=== PATIENT | female | born 1955 | race Caucasian/White ===

== ENCOUNTER 2018-10-21 04:50 | Day surgery (SDC) | payer OTHER ==
[2018-10-20 11:12] VITALS: BMI 42.9
[2018-10-21] MEDS ORDERED: BUPIVACAINE HCL/PF 0.5% (5MG/ML) 10 ML VIAL ONE (09:51)
--- NOTE | 2018-10-21 10:06 | HP ---
History & Physical Update - History History: No Change - Physical Physical: No Change - Assessment Assessment: No Change - Plan Plan: No Change (H & P + progress notes done on 08/22/18 and 09/22/18.)
--- NOTE | 2018-10-21 10:13 | OP ---
Operative Note - Note: Operative Date: 10/21/18 Pre-Operative Diagnosis: VENTRAL HERNIA WITH OBSTRUCTION Operation: Robotic SOLO, ventral and recurrent incisional hernia repair with mesh Findings: 4 cm umbilical hernia with incarcerated omentum 4 x 3 and 3 x 2 cm recurrent incisional hernia defects at medial end of right subcostal scar Post-Operative Diagnosis: Other (recurrent incisional hernias (2) at right subcostal scar) Surgeon: Remberto Pinzon Regulator Tester: Antoinette Hernandes Anesthesia: General Estimated Blood Loss (mls): 20 Operative Report Dictated: Yes
[2018-10-21] MEDS ORDERED: ceFAZolin SODIUM 1 GM VIAL IVPB ONE (10:34)
[2018-10-21] MEDS ORDERED: BUPIVACAINE HCL/PF (5 MG/ML) 30 ML VIAL IJ ONE ×2 (10:53)
[2018-10-21] MEDS ORDERED: PROMETHAZINE HCL 25 MG/1 ML VIAL IVPUSH PRN (14:18)
[2018-10-21] MEDS ORDERED: oxyCODONE HCL 5 MG TABLET PO PRN (14:18)
[2018-10-21] MEDS ORDERED: ONDANSETRON 4 MG/2 ML VIAL IVPUSH PRN (14:18)
--- NOTE | 2018-10-21 14:45 | SURG ---
Surgery Family Support Worker Note Family Support Worker: Antoinette Hernandes PA-C (Suzy) Date of Service: 10/21/18 Diagnosis: VENTRAL HERNIA WITH OBSTRUCTION Procedure: Robotic SOLO, ventral and recurrent incisional hernia repair with mesh I was present for the entirety of the operative procedure. For further detail, please refer to operative report. Visit type - Case Type Case Type: Scheduled - Emergency Emergency Visit: No - New patient This patient is new to me today: Yes Date on this admission: 10/21/18 - Critical Care Critical Care patient: No
[2018-10-21 16:40] VITALS: PULSE 89
[2018-10-21 18:03] VITALS: BP 133/75; TEMP 97.7
--- NOTE | 2018-10-22 07:55 | OP ---
DATE OF OPERATION: 10/21/2018 LOCATION NUMBER: Third surgery. PROCEDURE: Robotic-assisted laparoscopic lysis of adhesions, ventral and incisional hernia repair with mesh. PREOPERATIVE DIAGNOSIS: Ventral hernia with obstruction. POSTOPERATIVE DIAGNOSES: Intraabdominal adhesions, ventral (umbilical) hernia, and recurrent incisional hernia. SURGEON: Remberto Pnizon MD WE[place]ERCASTER: ETELVINA Braswell ANESTHESIA: General endotracheal. FINDINGS AND PROCEDURE: This is a 62-year-old female with history of open cholecystectomy in the past, who had developed an incisional hernia and had open repair with mesh. Patient subsequently developed an umbilical bulge which was about 5 cm in size and which was nonreducible. The patient was advised elective, robotic-assisted ventral hernia repair after a month of weight loss. So, consent was obtained after discussing the risks, benefits, and alternatives to the procedure. Patient was brought to the operating room and placed in supine position. General endotracheal anesthesia was administered. A roll was placed under the patient' s left flank, and both arms were tucked to the side on a beaulieu bag. The abdomen was prepped and draped in the usual sterile fashion. Using 0.5% Marcaine, local anesthesia was administered to the proposed incision sites. The peritoneal cavity was entered using the Veress needle technique, and pneumoperitoneum was established. This was followed by insertion of a left subcostal, 8-mm port into the peritoneal cavity. The 3D laparoscope was inserted, and the peritoneal cavity was carefully inspected and was noted to be free of inadvertent injury. The umbilical hernia containing incarcerated omentum was identified. Another incisional hernia at the previous subcostal repair was also identified. The umbilical hernia defect was about 4 cm, and the recurrent incisional hernia defects, which were adjacent to each other, were 4 x 3 and 3 x 1 cm in size. Two 8-mm ports were inserted at the left flank, 8 cm away from each other under direct vision. The target organ was set, and the robotic arms were docked. A fenestrated bipolar grasper was inserted at the left lowermost port, and the EndoWrist cathy connected to monopolar cautery were inserted at the subcostal port. The undersigned scrubbed out to commence the console part of the procedure. The incarcerated omentum was bluntly reduced, and the hernia sac was partially excised. Afterwards the peritoneal pocket was made using the EndoWrist cathy to completely reduce the hernia sac, and dissection was carried towards the right side of the umbilical defect. After the pocket was made, the umbilical defect was closed with a continuous V-Loc number 1 non-absorbable suture. This was followed by deployment of a 15 x 10 cm ProGrip mesh to reinforce the primary closure. The peritoneal pocket was then closed with a continuous V-Loc 2-0 absorbable suture. The recurrent incisional hernia was also primarily closed with a continuous V-Loc number 1 suture, the larger 1 closed vertically and the smaller 1 in transverse fashion. For this, the Symbotex 12 cm round mesh was deployed to reinforce the repair, and this was anchored to the posterior abdominal wall using continuous V-Loc 2-0 absorbable suture. After the repair was completed, the peritoneal cavity was carefully inspected and was noted to be free of inadvertent injury. The robotic arms were undocked, the pneumoperitoneum was evacuated and the ports were removed. The wounds were closed with subcuticular Biosyn 4-0 sutures, reinforced with Dermabond. The patient was successfully extubated and transferred to the postanesthesia care unit in satisfactory condition. ESTIMATED BLOOD LOSS: About 20 mL. WOUND CLASSIFICATION: Clean. The patient received 2 g of Ancef prior to the start of the procedure. Omer [id number] MTDD
== END 2018-10-21 19:00 | disposition home or self-care (01) ==
LOC: JASU-SURG 04:50
PROVIDERS: ATTEND Surgery
PROC: 8E0W4CZ Robotic Assisted Procedure of Trunk Region, Percutaneous Endoscopic Approach (ICD-10-PCS; 2018-10-21)
PROC: 0WUF4JZ Supplement Abdominal Wall with Synthetic Substitute, Percutaneous Endoscopic Approach (ICD-10-PCS; principal; 2018-10-21 09:30)
DX: K43.0 Incisional hernia with obstruction, without gangrene (principal); K43.6 Other and unspecified ventral hernia with obstruction, without gangrene; K66.0 Peritoneal adhesions (postprocedural) (postinfection); E66.01 Morbid (severe) obesity due to excess calories
CPT/HCPCS: 49657; S2900; 94760